=== PATIENT | female | born 1990 | race Caucasian/White ===

== ENCOUNTER 2019-03-11 11:42 | Inpatient (IN) | payer OTHER ==
[2019-03-11 13:14] VITALS: BMI 27.6
--- NOTE | 2019-03-11 14:11 | HP ---
CIWA Score Nausea/Vomitin (vomit x 2) Muscle Tremors: 1-None Visible, but [place] Anxiety: 3 Agitation: 0-Normal Activity Paroxysmal Sweats: 1-Minimal Palms Moist Orientation: 1-Uncertain about Date Tacttile Disturbances: 2-Mild Itch/Numbness/Burn (toes bilateral) Auditory Disturbances: 2-Mild Harshness/Frighten Visual Disturbances: 0-None Headache: 0-None Present CIWA-Ar Total Score: 13 - Admission Criteria OASAS Guidelines: Admission for Medically Managed Detox: Requires at least one of the followin. CIWA greater than 12 2. Seizures within the past 24 hours 3. Delirium tremens within the past 24 hours 4. Hallucinations within the past 24 hours 5. Acute intervention needed for co occurring medical disorder 6. Acute intervention needed for co occurring psychiatric disorder 7. Severe withdrawal that cannot be handled at a lower level of care (continued vomiting, continued diarrhea, abnormal vital signs) requiring intravenous medication and/or fluids 8. Patient presents the following: CIWA greater than 12 Admission Criteria Met: Admission criteria met Admission ROS [facility] Chief Complaint: " detox" Allergies/Adverse Reactions: Allergies Allergy/AdvReac Type Severity Reaction Status Date / Time tramadol Allergy Verified 03/11/19 13:00 History of Present Illness: 29 yo female, homeless, with hx of alcohol , mary, K2 and heroin (IV) dependence is here seeking detox. [facility] on methadone 120 mg qd, last dose today, dose pending verification. Utox positive fir THC, MARY, MET, FEN, MOP, Oxy. JAZZY = 0.00. PMHX: Asthma, Hep C. depression, anxiety and PTSD (non- adherent. Reports hx of seizure cause by tramadol "couple of years ago." Denies hx of suicidal ideation x "couple of times" with last episode on year ago. Denies suicidal / homicidal ideation. Longest period of sobriety three months in 2017. Last detox [facility] one year ago. Exam Limitations: No Limitations - Ebola screening Have you traveled outside of the country in the last 21 days: No (N) Have you had contact with anyone from an Ebola affected area: No Do you have a fever: No - Review of Systems Constitutional: Loss of Appetite, Changes in sleep, Unintentional Wgt. Loss ( 20lbs in past two months), Other (fatigue) EENT: reports: Nose Congestion, Dental Problems (+ multiple caries) Respiratory: reports: No Symptoms reported Cardiac: reports: No Symptoms Reported GI: reports: Nausea, Poor Appetite, Poor Fluid Intake, Vomiting : reports: No Symptoms Reported Musculoskeletal: reports: Back Pain Integumentary: reports: No Symptoms Reported Neuro: reports: Numbness (b/l toes) Endocrine: reports: Increased Thirst Hematology: reports: No Symptoms Reported Psychiatric: reports: Orientated x3, Anxious Other Systems: Reviewed and Negative Patient History - Patient Medical History Hx Anemia: No Hx Asthma: Yes Hx Chronic Obstructive Pulmonary Disease (COPD): No Hx Cancer: No Hx Cardiac Disorders: Yes (Bradycardia) Hx Congestive Heart Failure: No Hx Hypertension: No Hx Hypercholesterolemia: No Hx Pacemaker: No HX Cerebrovascular Accident: No Hx Seizures: Yes (seizure cause by tramadol "couple of years ago." ) Hx Dementia: No Hx Diabetes: No Hx Gastrointestinal Disorders: No Hx Liver Disease: Yes Hx Genitourinary Disorders: No Hx Sexually Transmitted Disorders: No Hx Renal Disease (ESRD): No Hx Thyroid Disease: No Hx Human Immunodeficiency Virus (HIV): No Hx Hepatitis C: Yes Hx Depression: Yes Hx Suicide Attempt: Yes (couple of times" with last episode on year ago) Hx Bipolar Disorder: No Hx Schizophrenia: No - Patient Surgical History Past Surgical History: Yes Hx Section: Yes (x4) Other Surgical History: ganglion cyst removal, gallblader remove - PPD History Previous Implant?: No Documented Results: Negative w/o proof PPD to be Administered?: Yes - Reproductive History Patient is a Female of Child Bearing Age (11 -55 yrs old): Yes Last Menstrual Period: 01/29/19 (appx ) Patient : No - Smoking Cessation Smoking history: Current every day smoker Have you smoked in the past 12 months: Yes Aproximately how many cigarettes per day: 13 Hx Chewing Tobacco Use: No Initiated information on smoking cessation: Yes 'Breaking Loose' booklet given: 03/11/19 - Substance & Tx. History Hx Alcohol Use: Yes Hx Substance Use: Yes Substance Use Type: Alcohol, Cocaine, Heroin, Marijuana Hx Substance Use Treatment: Yes ( Last detox [facility] one year ago.) - Substances abused Heroin Substance route: Injection Frequency: Daily Amount used: 4 BAGS Age of first use: 20 Date of last use: 03/11/19 Cocaine Substance route: Injection Frequency: Daily Amount used: 1 BAG Age of first use: 20 Date of last use: 03/11/19 K2/Spice Substance route: Smoking Frequency: Daily Amount used: 15 STICKS Age of first use: 28 Date of last use: 03/11/19 Alcohol Substance route: Oral Frequency: Daily Amount used: 2 nips + 2 x 24 oz rosa Age of first use: 12 Date of last use: 03/11/19 Family Disease History - Family Disease History Family Disease History: Other: Father (alcohol ) Admission Physical Exam S - Vital Signs Vital Signs: Vital Signs - 24 hr 03/11/19 13:03 Temperature 96.8 F L Pulse Rate 56 L Respiratory 18 Rate Blood Pressure 94/56 L - Physical General Appearance: Yes: Disheveled, Mild Distress, Thin, Sweating, Anxious HEENTM: Yes: EOMI, Hearing grossly Normal, Normal ENT Inspection, Normocephalic , Normal Voice, KOJO, Pharynx Normal, Tm's normal, Rhinorrhea, Other (poor dentition) Respiratory: Yes: Chest Non-Tender, Lungs Clear, No Respiratory Distress, No Accessory Muscle Use, Wheezing Neck: Yes: Within Normal Limits Breast: Yes: Breast Exam Deferred Cardiology: Yes: Regular Rhythm, Bradycardia Abdominal: Yes: Normal Bowel Sounds, Non Tender, Soft, Protuberent Genitourinary: Yes: Within Normal Limits Back: Yes: Normal Inspection Musculoskeletal: Yes: Back pain, Other (right hip pain) Extremities: Yes: Normal Capillary Refill, Normal Inspection, Normal Range of Motion 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: Yes: 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 intact, Fully Oriented, Alert, Motor Strength 5/5, Depressed Affect Integumentary: Yes: Normal Color, Dry, Warm, Track Franco (bilateral anticubital fossa no infection present) Lymphatic: Yes: Within Normal Limits - Diagnostic (1) Opioid dependence on agonist therapy Current Visit: Yes Status: Chronic Comment: on methadone maintance 120 mg qd , last dose today, dose pending verification (2) Cocaine dependence Current Visit: Yes Status: Acute (3) Cannabis dependence Current Visit: Yes Status: Acute (4) Alcohol dependence with uncomplicated withdrawal Current Visit: Yes Status: Acute (5) Back pain Current Visit: Yes Status: Acute Qualifiers: Back pain location: low back pain Back pain laterality: right Sciatica presence: without sciatica (6) Asthma Current Visit: Yes Status: Chronic Qualifiers: Asthma severity: mild Asthma persistence: intermittent Asthma complication type: uncomplicated Qualified Code(s): J45.20 - Mild intermittent asthma, uncomplicated (7) Wheezing Current Visit: Yes Status: Acute Cleared for Admission S - Detox or Rehab [facility] Level of Care: Medically Managed Detox Regimen/Protocol: Librium Breathalyzer - Breathalyzer Breathalyzer: 0 POC Urine test - Test device test lot number: [id number] Expiration date: 07/31/20 - Control test control: Yes - Result Urine Test Results: Negative - NO line present Urine Drug Screen - Test Device Lot number: [id number] Expiration date: 10/30/20 - Control Is test valid?: Yes - Results Drug screen NEGATIVE: No Urine drug screen results: THC-Marijuana, MARY-Cocaine, MET-Methamphetamine, FEN- Fentanyl, MOP-Opiates, OXY-Oxycodone Inpatient Rehab Admission - Rehab Decision to Admit Inpatient rehab admission?: No
[2019-03-11] MEDS ORDERED: MAGNESIUM CITRATE 300 ML BOTTLE PO PRN (14:19)
[2019-03-11] MEDS ORDERED: NICOTINE POLACRILEX 2 MG GUM BUC PRN (14:19)
[2019-03-11] MEDS ORDERED: BISMUTH SUBSALICYLATE 262 MG/15 ML BTL PO PRN (14:19)
[2019-03-11] MEDS ORDERED: MAG HYDROX/AL HYDROX/SIMETH 30 ML UNIT-DOSE CUP PO PRN (14:19)
[2019-03-11] MEDS ORDERED: MAGNESIUM HYDROX 2400MG/30ML ORAL SUSPENSION 30 ML CUP PO PRN (14:19)
[2019-03-11] MEDS ORDERED: ACETAMINOPHEN 325 MG TABLET (FP) PO PRN ×2 (14:19)
[2019-03-11] MEDS ORDERED: MENTHOL/PHENOL 1 EACH UD MM PRN (14:19)
[2019-03-11] MEDS ORDERED: ALBUTEROL SO4 0.083% IH SOL 2.5 MG/3 ML VIAL.NEB. NEB PRN (14:23)
[2019-03-11 17:04] LABS: HEMATOCRIT 39.6 % (32.4-45.2); MCH 27.7 pg (25.7-33.7); MCHC 32.9 g/dl (32.0-36.0); MEAN CELL VOLUME 84.1 fl (80-96); MEAN PLT VOLUME 9.8 fl (7.5-11.1); PLATELET COUNT 190 K/MM3 (134-434); RBC 4.71 M/mm3 (3.60-5.2); RDW 16.5 % (11.6-15.6); WHITE BLOOD COUNT 7.7 K/mm3 (4.0-10.0)
[2019-03-11] MEDS: chlordiazePOXIDE HCL 10 MG CAPSULE PO PRN (17:16)
[2019-03-11 17:20] LABS: ALBUMIN 3.5 g/dl (3.4-5.0); ALK PHOS 88 U/L (45-117); ANION GAP 6 MMOL/L (8-16); BILIRUBIN,TOTAL 0.4 mg/dL (0.2-1); BLOOD UREA NITROGEN 13 mg/dL (7-18); CALCIUM 8.3 mg/dL (8.5-10.1); CHLORIDE 106 mmol/L (98-107); CO2 28 mmol/L (21-32); CREATININE 0.7 mg/dL (0.55-1.3); GLUCOSE,RANDOM 80 mg/dL (74-106); POTASSIUM 4.1 mmol/L (3.5-5.1); SGOT/AST 14 U/L (15-37); SGPT/ALT 17 U/L (13-61); SODIUM 139 mmol/L (136-145); TOT PROT 6.9 g/dl (6.4-8.2)
[2019-03-11] MEDS: chlordiazePOXIDE HCL 25 MG CAPSULE PO SCH (20:55)
[2019-03-11] MEDS: THIAMINE HCL 100 MG TABLET (FP) PO SCH (22:13)
[2019-03-12] MEDS: IBUPROFEN 400 MG TABLET (FP) PO PRN (01:46)
[2019-03-12] MEDS: chlordiazePOXIDE HCL 25 MG CAPSULE PO SCH ×2 (05:53→13:53)
[2019-03-12] MEDS ORDERED: METHADONE HCL 40 MG DISPERSABLE TABLET PO ONE (08:40)
[2019-03-12] MEDS: PRENATAL VITAMINS W/ FOLIC ACID TABLET (FP) PO SCH (09:58)
[2019-03-12] MEDS: NICOTINE 14 MG/24 HOURS TOPICAL PATCH TD SCH (10:02)
[2019-03-12] MEDS: TRIMETHOBENZAMIDE HCL 200MG/2ML INJ IM PRN ×2 (10:50→18:15)
[2019-03-12] MEDS: chlordiazePOXIDE HCL 10 MG CAPSULE PO PRN ×2 (11:43→17:25)
--- NOTE | 2019-03-12 12:07 | PN ---
S Progress Note Note: Psychiatric nurse practitioner note: Network Control Technician attempted to see patient twice for psychiatric consultation. Patient is lethargic and vomiting. She is actively withdrawing. She reports not feeling well today and stated to editorial writer, " I do not want to see psychiatry today. I do not feel well. Its ok. thank you. Nursing staff informed.
--- NOTE | 2019-03-12 13:54 | PN ---
S CIWA - CIWA Score Nausea/Vomitin Muscle Tremors: 3 Anxiety: 3 Agitation: 4-Moderately Restless Paroxysmal Sweats: 3 Orientation: 0-Oriented Tacttile Disturbances: 0-None Auditory Disturbances: 0-None Visual Disturbances: 0-None Headache: 0-None Present CIWA-Ar Total Score: 15 S Progress Note (SOAP) Subjective: sweats shakes interrupted sleep nausea vomiting Objective: 03/12/19 13:53 Vital Signs Temperature 97.5 F L 03/12/19 09:21 Pulse Rate 53 L 03/12/19 09:21 Respiratory Rate 16 03/12/19 09:21 Blood Pressure 115/60 03/12/19 09:21 O2 Sat by Pulse Oximetry (%) Laboratory Tests 03/11/19 03/11/19 03/11/19 14:30 14:30 14:30 WBC 7.7 RBC 4.71 Hgb 13.0 Hct 39.6 MCV 84.1 MCH 27.7 MCHC 32.9 RDW 16.5 H Plt Count 190 MPV 9.8 Sodium 139 Potassium 4.1 Chloride 106 Carbon Dioxide 28 Anion Gap 6 L BUN 13 Creatinine 0.7 Creat Clearance w eGFR 98.25 Random Glucose 80 Calcium 8.3 L Total Bilirubin 0.4 AST 14 L ALT 17 Alkaline Phosphatase 88 Total Protein 6.9 Albumin 3.5 RPR Titer Nonreactive aaox3 lying in bed no acute distress Assessment: 03/12/19 13:53 withdrawls sx Plan: continue detox increase fluids tigan IM prn
--- NOTE | 2019-03-12 15:53 | PN ---
[facility] Progress Note Note: ekg performed; sinus lorne prolonged qt. pulse 54. pt denies of any chest pain/discomfort. Pt appears a bit better since receiving tigan IM. lorenaan SL prn also ordered pt states she is feeling a bit better since taking a shower. will continue to monitor
[2019-03-12] MEDS: ONDANSETRON *ODT* 4 MG TABLET SL PRN (15:55)
[2019-03-12] MEDS: chlordiazePOXIDE 5 MG CAPSULE PO SCH (22:43)
[2019-03-12] MEDS: THIAMINE HCL 100 MG TABLET (FP) PO SCH (22:44)
[2019-03-13] MEDS: ONDANSETRON *ODT* 4 MG TABLET SL PRN ×3 (01:25→22:25)
[2019-03-13] MEDS: chlordiazePOXIDE 5 MG CAPSULE PO SCH ×2 (05:40→12:11)
[2019-03-13] MEDS: METHADONE HCL 40 MG DISPERSABLE TABLET PO SCH (05:40)
[2019-03-13] MEDS: chlordiazePOXIDE HCL 10 MG CAPSULE PO PRN ×2 (08:10→16:47)
[2019-03-13] MEDS: IBUPROFEN 400 MG TABLET (FP) PO PRN ×2 (08:10→22:25)
[2019-03-13] MEDS: PRENATAL VITAMINS W/ FOLIC ACID TABLET (FP) PO SCH (09:05)
[2019-03-13] MEDS: NICOTINE 14 MG/24 HOURS TOPICAL PATCH TD SCH (09:25)
--- NOTE | 2019-03-13 12:44 | PN ---
S CIWA - CIWA Score Nausea/Vomitin Muscle Tremors: 2 Anxiety: 3 Agitation: 2 Paroxysmal Sweats: 2 Orientation: 0-Oriented Tacttile Disturbances: 2-Mild Itch/Numbness/Burn Auditory Disturbances: 0-None Visual Disturbances: 0-None Headache: 2-Mild CIWA-Ar Total Score: 15 S Progress Note (SOAP) Subjective: Tremors, sweats, abdominal cramps, back pain Objective: 03/13/19 12:44 Vital Signs 03/13/19 03/13/19 06:32 10:00 Temperature 98.2 F 97.9 F Pulse Rate 58 L 59 L Respiratory 18 16 Rate Blood Pressure 119/67 101/58 L Laboratory Last Values WBC 7.7 K/mm3 (4.0-10.0) 03/11/19 14:30 RBC 4.71 M/mm3 (3.60-5.2) 03/11/19 14:30 Hgb 13.0 GM/dL (10.7-15.3) 03/11/19 14:30 Hct 39.6 % (32.4-45.2) 03/11/19 14:30 MCV 84.1 fl (80-96) 03/11/19 14:30 MCH 27.7 pg (25.7-33.7) 03/11/19 14:30 MCHC 32.9 g/dl (32.0-36.0) 03/11/19 14:30 RDW 16.5 % (11.6-15.6) H 03/11/19 14:30 Plt Count 190 K/MM3 (134-434) 03/11/19 14:30 MPV 9.8 fl (7.5-11.1) 03/11/19 14:30 Sodium 139 mmol/L (136-145) 03/11/19 14:30 Potassium 4.1 mmol/L (3.5-5.1) 03/11/19 14:30 Chloride 106 mmol/L (98-107) 03/11/19 14:30 Carbon Dioxide 28 mmol/L (21-32) 03/11/19 14:30 Anion Gap 6 MMOL/L (8-16) L 03/11/19 14:30 BUN 13 mg/dL (7-18) 03/11/19 14:30 Creatinine 0.7 mg/dL (0.55-1.3) 03/11/19 14:30 Creat Clearance w eGFR 98.25 (>60) 03/11/19 14:30 Random Glucose 80 mg/dL (74-106) 03/11/19 14:30 Calcium 8.3 mg/dL (8.5-10.1) L 03/11/19 14:30 Total Bilirubin 0.4 mg/dL (0.2-1) 03/11/19 14:30 AST 14 U/L (15-37) L 03/11/19 14:30 ALT 17 U/L (13-61) 03/11/19 14:30 Alkaline Phosphatase 88 U/L (45-117) 03/11/19 14:30 Total Protein 6.9 g/dl (6.4-8.2) 03/11/19 14:30 Albumin 3.5 g/dl (3.4-5.0) 03/11/19 14:30 RPR Titer Nonreactive (NONREACTIVE) 03/11/19 14:30 Labs noted Assessment: 03/13/19 12:44 Withdrawal sx Plan: Continue detox
[2019-03-13] MEDS: METHOCARBAMOL 500 MG TABLET PO PRN (16:47)
[2019-03-13] MEDS ORDERED: chlordiazePOXIDE HCL 10 MG CAPSULE PO PRN (21:00)
[2019-03-13] MEDS: chlordiazePOXIDE HCL 10 MG CAPSULE PO SCH (22:24)
[2019-03-13] MEDS: THIAMINE HCL 100 MG TABLET (FP) PO SCH (22:24)
[2019-03-13] MEDS: MELATONIN 5 MG TABLETS PO PRN (22:25)
[2019-03-14] MEDS: METHADONE HCL 40 MG DISPERSABLE TABLET PO SCH (05:21)
[2019-03-14] MEDS: chlordiazePOXIDE HCL 10 MG CAPSULE PO SCH ×3 (05:21→22:21)
[2019-03-14] MEDS: ONDANSETRON *ODT* 4 MG TABLET SL PRN (06:30)
[2019-03-14] MEDS: IBUPROFEN 400 MG TABLET (FP) PO PRN ×2 (09:39→22:21)
[2019-03-14] MEDS: NICOTINE 14 MG/24 HOURS TOPICAL PATCH TD SCH (09:42)
[2019-03-14] MEDS: PRENATAL VITAMINS W/ FOLIC ACID TABLET (FP) PO SCH (09:44)
[2019-03-14] MEDS: METHOCARBAMOL 500 MG TABLET PO PRN ×2 (10:40→16:50)
--- NOTE | 2019-03-14 13:17 | PN ---
S Progress Note Note: PATIENT CONTINUES WITH DETOX REGIMEN FOR ETOH WITHDRAWAL. PATIENT C/O MILD ANXIETY AND BACK PAIN. Vital Signs Temperature 97.1 F L 03/14/19 09:29 Pulse Rate 79 03/14/19 09:29 Respiratory Rate 16 03/14/19 09:29 Blood Pressure 94/59 L 03/14/19 09:29 O2 Sat by Pulse Oximetry (%) Laboratory Tests 03/11/19 03/11/19 03/11/19 14:30 14:30 14:30 WBC 7.7 RBC 4.71 Hgb 13.0 Hct 39.6 MCV 84.1 MCH 27.7 MCHC 32.9 RDW 16.5 H Plt Count 190 MPV 9.8 Sodium 139 Potassium 4.1 Chloride 106 Carbon Dioxide 28 Anion Gap 6 L BUN 13 Creatinine 0.7 Creat Clearance w eGFR 98.25 Random Glucose 80 Calcium 8.3 L Total Bilirubin 0.4 AST 14 L ALT 17 Alkaline Phosphatase 88 Total Protein 6.9 Albumin 3.5 RPR Titer Nonreactive PE: ALERT AND ORIENTED X 3 SKIN WARM AND DRY CAR S1S2 RESP CTA BL EXT FULL ROM, AMB AD ASHWIN, +LS SPINE TENDERNESS +ANXIETY A/P: WITHDRAWAL SX LBP CONTINUE DETOX ENCOURAGE ORAL FLUIDS ADD VISTARIL 25MG EVERY 6 HR PRN FOR ANXIETY LIDOCAINE PATCH FOR LBP FOR D/C IN AM
[2019-03-14] MEDS: LIDOCAINE 5% TOPICAL PATCH TP SCH (14:58)
[2019-03-14] MEDS: hydrOXYzine PAMOATE 25 MG CAPSULE (FP) PO PRN ×2 (16:50→22:21)
[2019-03-14] MEDS ORDERED: chlordiazePOXIDE HCL 10 MG CAPSULE PO ONE (17:10)
--- NOTE | 2019-03-14 17:13 | PN ---
[facility] Progress Note Note: withdrawal symptom Vital Signs Temperature 98.1 F 03/14/19 15:07 Pulse Rate 76 03/14/19 14:55 Respiratory Rate 17 03/14/19 14:55 Blood Pressure 117/69 03/14/19 14:55 O2 Sat by Pulse Oximetry (%) librium 10 mgs po now ensure plus 12 mls po bid close monitoring
[2019-03-14] MEDS ORDERED: LIDOCAINE PATCH REMOVAL MC SCH (22:00)
[2019-03-14] MEDS: THIAMINE HCL 100 MG TABLET (FP) PO SCH (22:21)
[2019-03-14] MEDS: MELATONIN 5 MG TABLETS PO PRN (22:22)
[2019-03-15] MEDS: METHADONE HCL 40 MG DISPERSABLE TABLET PO SCH (05:05)
[2019-03-15] MEDS: IBUPROFEN 400 MG TABLET (FP) PO PRN (05:33)
[2019-03-15 07:41] VITALS: BP 101/80; PULSE 96; TEMP 97.9
--- NOTE | 2019-03-15 09:21 | DS ---
[facility] Detox Discharge Summary Admission Date: 03/11/19 Discharge Date: 03/15/19 - History Present History: Alcohol Dependence, Cannabis Dependence, Cocaine Dependence - Physical Exam Results Vital Signs: Vital Signs Temperature 97.9 F 03/15/19 03:00 Pulse Rate 96 H 03/15/19 03:00 Respiratory Rate 18 03/15/19 03:00 Blood Pressure 101/80 03/15/19 03:00 O2 Sat by Pulse Oximetry (%) - Treatment Hospital Course: Detox Protocol Followed, Detoxed Safely, Responded well, Discharged Condition Good, Rehab Referral Accepted - Medication Discharge Medications: Ambulatory Orders Gabapentin [Neurontin -] 200 mg PO DAILY 03/11/19 - Diagnosis (1) Alcohol dependence with uncomplicated withdrawal Current Visit: Yes Status: Chronic (2) Back pain Current Visit: Yes Status: Chronic Qualifiers: Back pain location: low back pain Back pain laterality: right Sciatica presence: without sciatica (3) Cannabis dependence Current Visit: Yes Status: Chronic (4) Cocaine dependence Current Visit: Yes Status: Chronic Qualifiers: Substance use status: uncomplicated Qualified Code(s): F14.20 - Cocaine dependence, uncomplicated (5) Wheezing Current Visit: Yes Status: Acute (6) Asthma Current Visit: Yes Status: Chronic Qualifiers: Asthma severity: mild Asthma persistence: intermittent Asthma complication type: uncomplicated Qualified Code(s): J45.20 - Mild intermittent asthma, uncomplicated (7) Opioid dependence on agonist therapy Current Visit: Yes Status: Chronic - AMA Did Patient Leave Against Medical Advice: No (referred to [facility] methadone [facility])
[2019-03-15] MEDS: NICOTINE 14 MG/24 HOURS TOPICAL PATCH TD SCH (10:31)
[2019-03-15] MEDS: LIDOCAINE 5% TOPICAL PATCH TP SCH (10:31)
[2019-03-15] MEDS: PRENATAL VITAMINS W/ FOLIC ACID TABLET (FP) PO SCH (10:31)
--- NOTE | 2019-03-15 10:40 | EKG ---
Test Reason : Blood Pressure : / mmHG Vent. Rate : 054 BPM Atrial Rate : 054 BPM P-R Int : 116 ms QRS Dur : 080 ms QT Int : 520 ms P-R-T Axes : -08 -02 021 degrees QTc Int : 493 ms SINUS BRADYCARDIA PROLONGED QT ABNORMAL ECG NO PREVIOUS ECGS AVAILABLE Confirmed by JEFFERSON CRESPO, JONATHON ([id number]) on 03/15/2019 10:40:29 AM Referred By: MANOJ PEREYRA Confirmed By:JONATHON PAULINO MD
== END 2019-03-15 09:39 | disposition home or self-care (01) | DRG 773 ==
LOC: YASAS 11:42 → Y6N 15:11
PROVIDERS: ADMIT Surgery; ATTEND Surgery
PROC: HZ2ZZZZ Detoxification Services for Substance Abuse Treatment (ICD-10-PCS; principal; 2019-03-11)
DX: F10.230 Alcohol dependence with withdrawal, uncomplicated (principal); F14.20 Cocaine dependence, uncomplicated; F12.20 Cannabis dependence, uncomplicated; F11.20 Opioid dependence, uncomplicated; F17.210 Nicotine dependence, cigarettes, uncomplicated; F41.8 Other specified anxiety disorders; F32.9 Major depressive disorder, single episode, unspecified; J45.20 Mild intermittent asthma, uncomplicated; B18.2 Chronic viral hepatitis C; Z86.69 Personal history of other diseases of the nervous system and sense organs; Z91.5 Personal history of self-harm
CPT/HCPCS: 36415; 80053; 85027; 86593; 93005; 93010; 94640; Q0162

== ENCOUNTER 2020-05-23 13:28 | Inpatient (IN) | payer OTHER ==
--- NOTE | 2020-05-23 14:01 | BHS.RME ---
Substance Use & Tx History - Substance Use History Alcohol Substance amount: 4-5 beers 12 0z Frequency of use: Daily Substance route: Oral Date of Last Use: 05/23/20 (9am) Heroin Substance amount: 1 bundle Frequency of use: Daily Substance route: Injection (ex: intravenous or skin popping) Date of Last Use: 05/22/20 Nicotine Substance amount: 1 pack Frequency of use: Daily Substance route: Smoking Date of Last Use: 05/23/20 Physical/Psych/Mental Status - Behavior General Behavior: Increased activity (restlessness, agitation) Eye Contact: Normal - Cooperativeness Cooperativeness: Cooperative - Thinking Thought Processes: Tight, Logical, Goal Directed - Physical Health Problems Is patient presently having any pain?: No Does patient presently have any injuries (include location): No Does patient currently have a fever: No Is patient : No CIWA Nausea/Vomitin-Mild Nausea/No Vomiting Muscle Tremors: 1-None Visible, but [place] Anxiety: 4-Mod. Anxious/Guarded Agitation: 4-Moderately Restless Paroxysmal Sweats: 5 Orientation: 0-Oriented Tacttile Disturbances: 0-None Auditory Disturbances: 0-None Visual Disturbances: 0-None Headache: 0-None Present CIWA-Ar Total Score: 15
--- NOTE | 2020-05-23 15:57 | HP ---
CIWA Score Nausea/Vomitin-Mild Nausea/No Vomiting Muscle Tremors: 1-None Visible, but [place] Anxiety: 4-Mod. Anxious/Guarded Agitation: 4-Moderately Restless Paroxysmal Sweats: 5 Orientation: 0-Oriented Tacttile Disturbances: 0-None Auditory Disturbances: 0-None Visual Disturbances: 0-None Headache: 0-None Present CIWA-Ar Total Score: 15 - Admission Criteria OASAS Guidelines: Admission for Medically Managed Detox: Requires at least one of the followin. CIWA greater than 12 2. Seizures within the past 24 hours 3. Delirium tremens within the past 24 hours 4. Hallucinations within the past 24 hours 5. Acute intervention needed for co occurring medical disorder 6. Acute intervention needed for co occurring psychiatric disorder 7. Severe withdrawal that cannot be handled at a lower level of care (continued vomiting, continued diarrhea, abnormal vital signs) requiring intravenous medication and/or fluids 8. Admitting History and Physical - Admission Chief Complaint: Ms. Willingham is a 30 yo woman who presents to [facility] requesting admission to detox for alcohol and heroin use disorder. History of Present Illness: Ms. Willingham is a 30 yo woman who presents to [facility] requesting admission to detox for alcohol and heroin use disorder. She was here in March 2019 for detox. She did not go to rehab afterwards and relapsed one day post discharge. 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 [facility] History Source: Patient Limitations to Obtaining History: No Limitations - Past Medical History ...LMP: 01/29/19 - Smoking History Smoking history: Current every day smoker Have you smoked in the past 12 months: Yes Aproximately how many cigarettes per day: 13 - Alcohol/Substance Use Hx Alcohol Use: Yes Admission ROS [facility] - HPI Allergies/Adverse Reactions: Allergies Allergy/AdvReac Type Severity Reaction Status Date / Time tramadol Allergy Verified 03/11/19 13:00 Exam Limitations: No Limitations - Ebola screening Have you been sick,other than usual withdrawal symptoms: No Do you have a fever: No - Review of Systems Constitutional: Unintentional Wgt. Loss EENT: reports: Hearing Loss (right ear) Respiratory: reports: No Symptoms reported Cardiac: reports: No Symptoms Reported GI: reports: Nausea : reports: No Symptoms Reported Musculoskeletal: reports: Back Pain Integumentary: reports: No Symptoms Reported Neuro: reports: No Symptoms reported Endocrine: reports: No Symptoms Reported Hematology: reports: No Symptoms Reported Psychiatric: reports: Anxious Patient History - Patient Medical History Hx Anemia: No Hx Asthma: Yes Hx Chronic Obstructive Pulmonary Disease (COPD): No Hx Cancer: No Hx Cardiac Disorders: Yes (Bradycardia) Hx Congestive Heart Failure: No Hx Hypertension: No Hx Hypercholesterolemia: No Hx Pacemaker: No HX Cerebrovascular Accident: No Hx Seizures: Yes (seizure cause by tramadol "couple of years ago." ) Hx Dementia: No Hx Diabetes: No Hx Gastrointestinal Disorders: No Hx Liver Disease: Yes Hx Genitourinary Disorders: No Hx Sexually Transmitted Disorders: No Hx Renal Disease (ESRD): No Hx Thyroid Disease: No Hx Human Immunodeficiency Virus (HIV): No Hx Hepatitis C: Yes Hx Depression: Yes Hx Suicide Attempt: Yes (couple of times" with last episode on year ago) Hx Bipolar Disorder: No Hx Schizophrenia: No - Patient Surgical History Past Surgical History: Yes Hx Neurologic Surgery: No Hx Cataract Extraction: No Hx Cardiac Surgery: No Hx Lung Surgery: No Hx Breast Surgery: No Hx Breast Biopsy: No Hx Abdominal Surgery: No Hx Appendectomy: No Hx Cholecystectomy: No Hx Genitourinary Surgery: No Hx Section: Yes (x4) Hx Orthopedic Surgery: No Other Surgical History: ganglion cyst removal, gallblader remove - PPD History Date: 03/13/19 - Reproductive History Last Menstrual Period: 01/29/19 - Smoking Cessation Smoking history: Current every day smoker Have you smoked in the past 12 months: Yes Aproximately how many cigarettes per day: 20 Cigars Per Day: 0 Hx Chewing Tobacco Use: No Initiated information on smoking cessation: Yes 'Breaking Loose' booklet given: 05/23/20 Admission Physical Exam [facility] Physical General Appearance: Yes: Nourished, Tremorous, Anxious HEENTM: Yes: Hearing grossly Normal, Normocephalic, Normal Voice Respiratory: Yes: Lungs Clear, Normal Breath Sounds, No Accessory Muscle Use Neck: Yes: Within Normal Limits, Supple, Trachea in good position Breast: Yes: Breast Exam Deferred Cardiology: Yes: Regular Rhythm, Regular Rate, S1, S2 Abdominal: Yes: Soft (mild mid line), Increased Bowel Sounds, Tenderness Genitourinary: Yes: Other (deferred) Back: Yes: Normal Inspection Musculoskeletal: Yes: Gait Steady Extremities: Yes: Non-Tender, Tremors, Other (chronic ankle, knee and hip pain after jump out of second story window) 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: Yes: Alert, Normal Response Integumentary: Yes: Dry, Warm, Track Franco, Other (self inflicted lateral lines over medial forearms) Lymphatic: Yes: Within Normal Limits Cleared for Admission [facility] - Detox or Rehab [facility] Level of Care: Medically Managed Detox Regimen/Protocol: Librium Breathalyzer - Breathalyzer Breathalyzer: 0 POC Urine test - Test device test lot number: [id number] Expiration date: 07/31/20 - Control test control: Yes Urine Drug Screen - Test Device Lot number: [id number] Expiration date: 07/31/21 - Control Is test valid?: Yes - Results Drug screen NEGATIVE: No Urine drug screen results: MCKENNA-Cocaine, FEN-Fentanyl, MOP-Opiates, MTD-Methadone Inpatient Rehab Admission - Rehab Decision to Admit Inpatient rehab admission?: No
[2020-05-23] MEDS ORDERED: MAGNESIUM HYDROX 2400MG/30ML ORAL SUSPENSION 30 ML CUP PO PRN (16:01)
[2020-05-23] MEDS ORDERED: MENTHOL/PHENOL 1 EACH UD MM PRN (16:01)
[2020-05-23] MEDS ORDERED: BISMUTH SUBSALICYLATE 524 MG/30 ML UD PO PRN (16:01)
[2020-05-23] MEDS ORDERED: MAG HYDROX/AL HYDROX/SIMETH 30 ML UNIT-DOSE CUP PO PRN (16:01)
[2020-05-23] MEDS ORDERED: NICOTINE POLACRILEX 2 MG GUM BUC PRN (16:01)
[2020-05-23] MEDS ORDERED: ACETAMINOPHEN 325 MG TABLET (FP) PO PRN ×2 (16:01)
[2020-05-23] MEDS ORDERED: chlordiazePOXIDE HCL 25 MG CAPSULE PO PRN (16:01)
[2020-05-23] MEDS ORDERED: MAGNESIUM CITRATE 300 ML BOTTLE PO PRN (16:01)
[2020-05-23 16:28] VITALS: BMI 28.3
[2020-05-23] MEDS ORDERED: METHADONE HCL 10 MG TABLET PO ONE (16:45)
[2020-05-23] MEDS: hydrOXYzine PAMOATE 25 MG CAPSULE (FP) PO SCH ×2 (17:40→22:44)
[2020-05-23] MEDS: PRENATAL VITAMINS W/ FOLIC ACID TABLET (FP) PO SCH (17:40)
[2020-05-23] MEDS: chlordiazePOXIDE HCL 25 MG CAPSULE PO SCH ×2 (17:40→22:43)
[2020-05-23] MEDS: NICOTINE 7 MG/24 HOURS TOPICAL PATCH TD SCH (17:42)
[2020-05-23] MEDS: ONDANSETRON *ODT* 4 MG TABLET SL PRN (17:46)
[2020-05-23] MEDS: MELATONIN 5 MG TABLETS PO SCH (22:43)
[2020-05-23] MEDS: THIAMINE HCL 100 MG TABLET (FP) PO SCH (22:43)
[2020-05-23] MEDS: IBUPROFEN 400 MG TABLET (FP) PO PRN (22:47)
[2020-05-24] MEDS: METHOCARBAMOL 500 MG TABLET PO PRN ×3 (06:11→22:22)
[2020-05-24] MEDS: ONDANSETRON *ODT* 4 MG TABLET SL PRN (06:11)
[2020-05-24] MEDS: chlordiazePOXIDE HCL 25 MG CAPSULE PO SCH ×4 (06:12→22:24)
[2020-05-24] MEDS: hydrOXYzine PAMOATE 25 MG CAPSULE (FP) PO SCH ×2 (06:12→11:35)
[2020-05-24] MEDS ORDERED: METHADONE 80 MG, METHADONE 20 MG PO ONE ×2 (10:10→11:30)
[2020-05-24] MEDS ORDERED: METHADONE HCL 10 MG TABLET PO ONE (10:10)
--- NOTE | 2020-05-24 10:13 | PN ---
S CIWA - CIWA Score Nausea/Vomitin-No Nausea/No Vomiting Muscle Tremors: 4-Moderate,w/Arms Extend Anxiety: 4-Mod. Anxious/Guarded Agitation: 3 Paroxysmal Sweats: 1-Minimal Palms Moist Orientation: 0-Oriented Tacttile Disturbances: 0-None Auditory Disturbances: 0-None Visual Disturbances: 0-None Headache: 0-None Present CIWA-Ar Total Score: 12 [facility] Progress Note (SOAP) Subjective: 30 y/o admitted 05/23/20 with a hx of ALEJANDRO-alcohol,cocaine on Cesar Torres-MMTP with 100 mg methadone po daily. Hx Asthma,PTSD/Anxiety disorder. Anxiety, sweats, irritability Objective: 05/24/20 11:44 Vital Signs 05/24/20 05/24/20 05:46 09:14 Temperature 98.2 F 98.2 F Pulse Rate 60 68 Respiratory 18 18 Rate Blood Pressure 100/58 L 102/57 L O2 Sat by Pulse 96 96 Oximetry (%) Laboratory Tests 05/24/20 05/24/20 07:30 07:30 WBC 3.6 L RBC 4.96 Hgb 13.2 Hct 40.7 MCV 82.0 MCH 26.6 MCHC 32.4 RDW 17.5 H Plt Count 185 MPV 9.1 Sodium 140 Potassium 3.9 Chloride 106 Carbon Dioxide 30 Anion Gap 4 L BUN 21.7 H Creatinine 0.9 Est GFR (CKD-EPI)AfAm 98.75 Est GFR (CKD-EPI)NonAf 85.20 Random Glucose 87 Calcium 8.6 Total Bilirubin 0.8 AST 49 H ALT 83 H Alkaline Phosphatase 97 Total Protein 6.7 Albumin 3.1 L covid-19 result pending Alert o x 3 nad oob ambulating with steady gait lungs:cta,leoncio. Assessment: 05/24/20 11:45 withdrawal sx Plan: cont detox increase po fluids maintain safety
[2020-05-24 10:36] LABS: HEMATOCRIT 40.7 % (32.4-45.2); HEMOGLOBIN 13.2 GM/dL (10.7-15.3); MCH 26.6 pg (25.7-33.7); MCHC 32.4 g/dl (32.0-36.0); MEAN PLT VOLUME 9.1 fl (7.5-11.1); PLATELET COUNT 185 K/MM3 (134-434); RBC 4.96 M/mm3 (3.60-5.2); RDW 17.5 % (11.6-15.6); WHITE BLOOD COUNT 3.6 K/mm3 (4.0-10.0)
[2020-05-24 10:44] LABS: ALBUMIN 3.1 g/dl (3.4-5.0); BILIRUBIN,TOTAL 0.8 mg/dL (0.2-1); BLOOD UREA NITROGEN 21.7 mg/dL (7-18); CALCIUM 8.6 mg/dL (8.5-10.1); CREATININE 0.9 mg/dL (0.55-1.3); POTASSIUM 3.9 mmol/L (3.5-5.1); TOT PROT 6.7 g/dl (6.4-8.2)
[2020-05-24] MEDS ORDERED: METHADONE HCL 10 MG TABLET ONE (11:25)
[2020-05-24] MEDS ORDERED: METHADONE HCL 40 MG DISPERSABLE TABLET ONE (11:26)
[2020-05-24] MEDS: PRENATAL VITAMINS W/ FOLIC ACID TABLET (FP) PO SCH (11:29)
[2020-05-24] MEDS: NICOTINE 7 MG/24 HOURS TOPICAL PATCH TD SCH (11:32)
[2020-05-24] MEDS ORDERED: hydrOXYzine PAMOATE 25 MG CAPSULE (FP) PO PRN (11:58)
[2020-05-24] MEDS ORDERED: NICOTINE POLACRILEX 4 MG GUM BUC PRN (11:59)
[2020-05-24] MEDS: IBUPROFEN 400 MG TABLET (FP) PO PRN (13:53)
[2020-05-24] MEDS: NICOTINE 21 MG/24 HOURS TOPICAL PATCH TD SCH (14:18)
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
[2020-05-24] MEDS ORDERED: LACTULOSE 20 GM/30 ML UDC (FOR ORAL USE ONLY) PO PRN (19:41)
--- NOTE | 2020-05-24 19:46 | PN ---
[facility] Progress Note Note: 30 y.o. female c/o constipation , states she does not recall when the last time she had a bowel movement . Also reports sweating , chills, body aches, LMP - " years ago " reports P5 youngest 1 y.o., 2 y.o. . Vital Signs - 24 hr 05/23/20 05/24/20 05/24/20 20:25 00:30 03:30 Temperature 98.1 F Pulse Rate 58 L Respiratory 17 16 16 Rate Blood Pressure 102/57 L O2 Sat by Pulse 95 Oximetry (%) 05/24/20 05/24/20 05/24/20 05:46 09:14 12:24 Temperature 98.2 F 98.2 F 98.4 F Pulse Rate 60 68 66 Respiratory 18 18 18 Rate Blood Pressure 100/58 L 102/57 L 100/50 L O2 Sat by Pulse 96 96 96 Oximetry (%) 05/24/20 05/24/20 05/24/20 15:42 16:30 17:55 Temperature 98.0 F Pulse Rate 67 78 Respiratory 18 Rate Blood Pressure 96/60 104/60 O2 Sat by Pulse 95 Oximetry (%) O : Abdomen soft , mild diffuse tenderness LUQ A/P : Constipation - Lactulose 30 cc now Encouraged p.o. fluids . pt reports h/o low BP during detox . Advised pt of prn meds and encouraged to take prn meds .
[2020-05-24] MEDS: THIAMINE HCL 100 MG TABLET (FP) PO SCH (22:22)
[2020-05-24] MEDS: MELATONIN 5 MG TABLETS PO SCH (22:22)
[2020-05-24] MEDS: SUVOREXANT 10 MG TABLET PO PRN (22:24)
[2020-05-25] MEDS ORDERED: METHADONE HCL 10 MG TABLET ONE (04:01)
[2020-05-25] MEDS ORDERED: METHADONE HCL 40 MG DISPERSABLE TABLET ONE (04:01)
[2020-05-25] MEDS ORDERED: METHADONE HCL 10 MG TABLET PO SCH (06:00)
[2020-05-25] MEDS: chlordiazePOXIDE HCL 25 MG CAPSULE PO SCH ×4 (06:49→23:14)
[2020-05-25] MEDS: METHADONE 80 MG, METHADONE 20 MG PO SCH (06:49)
[2020-05-25] MEDS: METHOCARBAMOL 500 MG TABLET PO PRN ×3 (10:35→23:14)
[2020-05-25] MEDS: LIDOCAINE 5% TOPICAL PATCH TP SCH (10:35)
[2020-05-25] MEDS: PRENATAL VITAMINS W/ FOLIC ACID TABLET (FP) PO SCH (10:36)
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
[2020-05-25] MEDS: NICOTINE 21 MG/24 HOURS TOPICAL PATCH TD SCH (10:38)
[2020-05-25] MEDS: IBUPROFEN 400 MG TABLET (FP) PO PRN (16:19)
--- NOTE | 2020-05-25 17:41 | EKG ---
Test Reason : Blood Pressure : / mmHG Vent. Rate : 070 BPM Atrial Rate : 070 BPM P-R Int : 140 ms QRS Dur : 082 ms QT Int : 460 ms P-R-T Axes : 054 -11 001 degrees QTc Int : 496 ms NORMAL SINUS RHYTHM MINIMAL VOLTAGE CRITERIA FOR LVH, MAY BE NORMAL VARIANT PROLONGED QT ABNORMAL ECG WHEN COMPARED WITH ECG OF 12-MAR-2019 14:46, NO SIGNIFICANT CHANGE WAS FOUND Confirmed by JEFFERSON CRESPO, JONATHON ([id number]) on 05/25/2020 5:40:51 PM Referred By: Confirmed By:JONATHON PAULINO MD
[2020-05-25] MEDS: MELATONIN 5 MG TABLETS PO SCH (23:13)
[2020-05-25] MEDS: LIDOCAINE PATCH REMOVAL MC SCH (23:13)
[2020-05-25] MEDS: THIAMINE HCL 100 MG TABLET (FP) PO SCH (23:14)
[2020-05-25] MEDS: SUVOREXANT 10 MG TABLET PO PRN (23:15)
[2020-05-26] MEDS ORDERED: chlordiazePOXIDE HCL 10 MG CAPSULE PO PRN
[2020-05-26] MEDS ORDERED: METHADONE HCL 10 MG TABLET ONE (03:36)
[2020-05-26] MEDS ORDERED: METHADONE HCL 40 MG DISPERSABLE TABLET ONE (03:37)
[2020-05-26] MEDS: METHADONE 80 MG, METHADONE 20 MG PO SCH (06:26)
[2020-05-26] MEDS: chlordiazePOXIDE HCL 10 MG CAPSULE PO SCH ×4 (06:27→22:14)
[2020-05-26] MEDS: METHOCARBAMOL 500 MG TABLET PO PRN ×2 (06:28→17:59)
[2020-05-26] MEDS: IBUPROFEN 400 MG TABLET (FP) PO PRN ×2 (08:01→22:14)
[2020-05-26] MEDS: PRENATAL VITAMINS W/ FOLIC ACID TABLET (FP) PO SCH (10:17)
[2020-05-26] MEDS: LIDOCAINE 5% TOPICAL PATCH TP SCH (10:17)
[2020-05-26] MEDS: NICOTINE 21 MG/24 HOURS TOPICAL PATCH TD SCH (10:18)
--- NOTE | 2020-05-26 10:47 | PN ---
Psychiatric Progress Note Vital Signs: Vital Signs Period Temp Pulse Resp BP Sys/Erazo Pulse Ox Last 24 Hr 97.1 F-98.0 F 62-82 17-18 91-116/58-69 95-98 Date of Session: 05/26/20 Chief Complaint:: " I'm having anxiety." HPI: Patient admitted to for alcohol, cocaine, and opiate dependence. Consultation ordered due to complaints of anxiety. ROS: Patient is ambulatory, alert +oriented X3. Current Medications: Active Medications Generic Name Dose Route Start Last Admin Trade Name Freq PRN Reason Stop Dose Admin Acetaminophen 650 mg 05/23/20 16:01 Tylenol - PO Q6H PRN PAIN LEVEL 4 - 6 Acetaminophen 650 mg 05/23/20 16:01 Tylenol - PO Q6H PRN FEVER Al Hydroxide/Mg Hydroxide 30 ml 05/23/20 16:01 05/24/20 16:30 Mylanta Oral Suspension - PO 30 ml Q6H PRN Administration DYSPEPSIA Bismuth Subsalicylate 524 mg 05/23/20 16:01 Pepto-Bismol - PO Q1H PRN DIARRHEA Chlordiazepoxide HCl 10 mg 05/26/20 05:00 05/26/20 10:16 Librium - PO 05/26/20 23:01 10 mg [id number] JOSE C Administration Chlordiazepoxide HCl 10 mg 05/27/20 05:00 Librium - PO 05/27/20 17:01 Q12H JOSE C Chlordiazepoxide HCl 10 mg 05/26/20 00:00 Librium - PO 05/27/20 00:00 Q4H PRN WITHDRAWAL(CONT SUBST) Chlordiazepoxide HCl 10 mg 05/28/20 05:00 Librium - PO 05/28/20 05:01 ONCE@0500 ONE Eucalyptus/Menthol/Phenol/Sorbitol 1 each 05/23/20 16:01 Cepastat Lozenge - MM 05/29/20 16:01 Q4H PRN SORE THROAT Ibuprofen 400 mg 05/23/20 16:01 05/26/20 08:01 Motrin - PO 400 mg Q6H PRN Administration PAIN LEVEL 1 - 3 Lactulose 20 gm 05/24/20 19:41 05/24/20 19:47 Cephulac (Oral Use) PO 20 gm QID PRN Administration CONSTIPATION Lidocaine 1 patch 05/25/20 10:30 05/26/20 10:17 Lidoderm Patch - TP 1 patch DAILY JOSE C Administration Magnesium Citrate 300 ml 05/23/20 16:01 Citroma - PO Q48H PRN CONSTIPATION Magnesium Hydroxide 30 ml 05/23/20 16:01 Milk Of Magnesia - PO PRN PRN CONSTIPATION Melatonin 5 mg 05/23/20 22:00 05/25/20 23:13 Melatonin PO 5 mg HS JOSE C Administration Methadone HCl 80 mg/ Methadone 100 mg 05/25/20 06:00 05/26/20 06:26 HCl 20 mg PO 05/31/20 05:59 100 mg DAILY@0600 JOSE C Administration Methocarbamol 500 mg 05/23/20 16:01 05/26/20 06:28 Robaxin - PO 05/29/20 16:01 500 mg Q6H PRN Administration MUSCLE SPASMS Miscellaneous 1 each 05/25/20 22:00 05/25/20 23:13 Lidoderm Patch Removal MC 1 each DAILY@2200 JOSE C Administration Nicotine 21 mg 05/24/20 11:57 05/26/20 10:18 Nicoderm Patch - TD 21 mg DAILY JOSE C Administration Nicotine Polacrilex 4 mg 05/24/20 11:59 Nicorette Gum - BUC Q2H PRN NICOTINE REPLACEMENT RX Multivit/Folic Acid/Iron 1 tab 05/23/20 16:45 05/26/20 10:17 Vitamins (Sjr) - PO 1 tab DAILY JOSE C Administration Suvorexant 10 mg 05/24/20 22:00 05/25/20 23:15 Belsomra PO 10 mg HS PRN Administration INSOMNIA Thiamine HCl 100 mg 05/23/20 22:00 05/25/20 23:14 Vitamin B1 - PO 100 mg HS JOSE C Administration Medication(s) Change(s): Yes. Will add gabapentin 300mg TID. Current Side Effect: No Lab tests ordered: No Lab tests reviewed: Yes Provider note:: Patient reports having anxiety throughout the day. Vistaril was discontinued due to patient's EKG which reads on 05/23/20: QT/QTC 460/496- Prolong QTC. Ms. Willingham reports past history of accepting gabapentin with favorable effect. Will order Gabapentin 300m TID for anxiety. Benefits and side effects discussed. Verbal consent given. Total face to face time:: 25 Mental Status Exam - Mental Status Exam Alert and Oriented to: Time, Place, Person Cognitive Function: Good Patient Appearance: Well Groomed Mood: Hopeful Affect: Appropriate Patient Behavior: Appropriate, Cooperative Speech Pattern: Appropriate Voice Loudness: Normal Thought Process: Intact, Goal Oriented Thought Disorder: Not Present Hallucinations: Denies Suicidal Ideation: Denies Homicidal Ideation: Denies Insight/Judgement: Poor Sleep: Fair Appetite: Fair Muscle strength/Tone: Normal Gait/Station: Normal Psychiatric Treatment Plan - Problem List (1) Substance induced mood disorder Current Visit: Yes (2) Alcohol dependence with uncomplicated withdrawal Current Visit: Yes (3) Cocaine dependence Current Visit: Yes Qualifiers: Substance use status: uncomplicated Qualified Code(s): F14.20 - Cocaine dependence, uncomplicated (4) Opioid dependence on agonist therapy Current Visit: Yes Comment: on methadone maintance 120 mg qd, last dose today, dose pending verification (5) PTSD (post-traumatic stress disorder) Current Visit: No (6) Substance-induced sleep disorder Current Visit: Yes
[2020-05-26] MEDS ORDERED: TRIMETHOBENZAMIDE HCL 300 MG CAPSULE PO PRN (12:10)
[2020-05-26] MEDS: GABAPENTIN 300 MG CAPSULE PO SCH ×2 (13:08→22:15)
--- NOTE | 2020-05-26 13:59 | PN ---
S CIWA - CIWA Score Nausea/Vomitin-Mild Nausea/No Vomiting Muscle Tremors: 4-Moderate,w/Arms Extend Anxiety: 4-Mod. Anxious/Guarded Agitation: 3 Paroxysmal Sweats: 1-Minimal Palms Moist Orientation: 0-Oriented Tacttile Disturbances: 0-None Auditory Disturbances: 0-None Visual Disturbances: 0-None Headache: 0-None Present CIWA-Ar Total Score: 13 BHS Progress Note (SOAP) Subjective: c/o anxiety nausea,no vomiting intermittent sleep Objective: 05/26/20 13:13 Vital Signs 05/26/20 05/26/20 06:59 09:35 Temperature 98.0 F 97.3 F L Pulse Rate 64 74 Respiratory 18 18 Rate Blood Pressure 104/58 L 103/62 O2 Sat by Pulse 98 Oximetry (%) Laboratory Tests 05/23/20 05/23/20 05/24/20 14:36 16:45 07:30 WBC RBC Hgb Hct MCV MCH MCHC RDW Plt Count MPV Sodium Potassium Chloride Carbon Dioxide Anion Gap BUN Creatinine Est GFR (CKD-EPI)AfAm Est GFR (CKD-EPI)NonAf Random Glucose Calcium Total Bilirubin AST ALT Alkaline Phosphatase Total Protein Albumin POC Urine HCG, Qual Negative Syphilis Serology Non-reactive COVID-19 (GABY) Not detected HIV Ag/Ab Combo Qual 05/24/20 05/24/20 05/24/20 07:30 07:30 07:30 WBC 3.6 L RBC 4.96 Hgb 13.2 Hct 40.7 MCV 82.0 MCH 26.6 MCHC 32.4 RDW 17.5 H Plt Count 185 MPV 9.1 Sodium 140 Potassium 3.9 Chloride 106 Carbon Dioxide 30 Anion Gap 4 L BUN 21.7 H Creatinine 0.9 Est GFR (CKD-EPI)AfAm 98.75 Est GFR (CKD-EPI)NonAf 85.20 Random Glucose 87 Calcium 8.6 Total Bilirubin 0.8 AST 49 H ALT 83 H Alkaline Phosphatase 97 Total Protein 6.7 Albumin 3.1 L POC Urine HCG, Qual Syphilis Serology COVID-19 (GABY) HIV Ag/Ab Combo Qual Negative covid-19 not detected Assessment: 05/26/20 13:13 withdrwaal sx nausea Plan: continue detox increase po fluids maintain safety Tigan prn as directed psych f/u today
[2020-05-26] MEDS: SUVOREXANT 10 MG TABLET PO PRN (22:14)
[2020-05-26] MEDS: THIAMINE HCL 100 MG TABLET (FP) PO SCH (22:14)
[2020-05-26] MEDS: MELATONIN 5 MG TABLETS PO SCH (22:15)
[2020-05-26] MEDS: LIDOCAINE PATCH REMOVAL MC SCH (22:16)
[2020-05-27] MEDS ORDERED: METHADONE HCL 10 MG TABLET ONE (04:00)
[2020-05-27] MEDS: IBUPROFEN 400 MG TABLET (FP) PO PRN ×2 (04:01→13:46)
[2020-05-27] MEDS ORDERED: METHADONE HCL 40 MG DISPERSABLE TABLET ONE (04:01)
[2020-05-27] MEDS: METHADONE 80 MG, METHADONE 20 MG PO SCH (07:02)
[2020-05-27] MEDS: chlordiazePOXIDE HCL 10 MG CAPSULE PO SCH ×2 (07:03→17:42)
[2020-05-27] MEDS: GABAPENTIN 300 MG CAPSULE PO SCH ×3 (07:03→22:48)
[2020-05-27] MEDS: NICOTINE 21 MG/24 HOURS TOPICAL PATCH TD SCH (10:31)
[2020-05-27] MEDS: LIDOCAINE 5% TOPICAL PATCH TP SCH (10:32)
[2020-05-27] MEDS: PRENATAL VITAMINS W/ FOLIC ACID TABLET (FP) PO SCH (10:33)
[2020-05-27] MEDS: METHOCARBAMOL 500 MG TABLET PO PRN ×3 (10:33→22:51)
--- NOTE | 2020-05-27 14:29 | PN ---
[facility] CIWA - CIWA Score Nausea/Vomitin-No Nausea/No Vomiting Muscle Tremors: None Anxiety: 2 Agitation: 0-Normal Activity Paroxysmal Sweats: 2 Orientation: 0-Oriented Tacttile Disturbances: 0-None Auditory Disturbances: 0-None Visual Disturbances: 0-None Headache: 0-None Present CIWA-Ar Total Score: 4 S Progress Note (SOAP) Subjective: c/o mild withdrawal symptoms. Objective: 05/27/20 14:30 Vital Signs 05/27/20 05/27/20 05/27/20 07:00 09:45 13:20 Temperature 98.5 F 98.4 F 98.5 F Pulse Rate 79 81 90 Respiratory 18 18 18 Rate Blood Pressure 100/63 103/68 112/64 O2 Sat by Pulse 98 96 Oximetry (%) Laboratory Last Values WBC 3.6 K/mm3 (4.0-10.0) L 05/24/20 07:30 RBC 4.96 M/mm3 (3.60-5.2) 05/24/20 07:30 Hgb 13.2 GM/dL (10.7-15.3) 05/24/20 07:30 Hct 40.7 % (32.4-45.2) 05/24/20 07:30 MCV 82.0 fl (80-96) 05/24/20 07:30 MCH 26.6 pg (25.7-33.7) 05/24/20 07:30 MCHC 32.4 g/dl (32.0-36.0) 05/24/20 07:30 RDW 17.5 % (11.6-15.6) H 05/24/20 07:30 Plt Count 185 K/MM3 (134-434) 05/24/20 07:30 MPV 9.1 fl (7.5-11.1) 05/24/20 07:30 Sodium 140 mmol/L (136-145) 05/24/20 07:30 Potassium 3.9 mmol/L (3.5-5.1) 05/24/20 07:30 Chloride 106 mmol/L (98-107) 05/24/20 07:30 Carbon Dioxide 30 mmol/L (21-32) 05/24/20 07:30 Anion Gap 4 MMOL/L (8-16) L 06/24/20 07:30 BUN 21.7 mg/dL (7-18) H 05/24/20 07:30 Creatinine 0.9 mg/dL (0.55-1.3) 05/24/20 07:30 Est GFR (CKD-EPI)AfAm 98.75 05/24/20 07:30 Est GFR (CKD-EPI)NonAf 85.20 05/24/20 07:30 Random Glucose 87 mg/dL (74-106) 05/24/20 07:30 Calcium 8.6 mg/dL (8.5-10.1) 05/24/20 07:30 Total Bilirubin 0.8 mg/dL (0.2-1) 05/24/20 07:30 AST 49 U/L (15-37) H 05/24/20 07:30 ALT 83 U/L (13-61) H 05/24/20 07:30 Alkaline Phosphatase 97 U/L (45-117) 05/24/20 07:30 Total Protein 6.7 g/dl (6.4-8.2) 05/24/20 07:30 Albumin 3.1 g/dl (3.4-5.0) L 05/24/20 07:30 POC Urine HCG, Qual Negative 05/23/20 14:36 Syphilis Serology Non-reactive (NONREACTIVE) 05/24/20 07:30 COVID-19 (GABY) Not detected (Not Detected) 05/23/20 16:45 HIV Ag/Ab Combo Qual Negative (NEGATIVE) 05/24/20 07:30 Labs noted. Assessment: 05/27/20 14:30 AOX3, in no acute respiratory distress. Full ROM, ambulating in the unit. Mild withdrawal symptoms. For d/c tomorrow. Plan: continue detox. D/c in AM.
--- NOTE | 2020-05-27 15:42 | PN ---
[facility] Progress Note Note: Psychiatric nurse practitoner note: Patient scheduled for discharge tomorrow morning. A 2 week supply of Gabapentin 300mg TID was electronically sent to [facility] at [address] [place] [address]. [place] [address].
[2020-05-27] MEDS: THIAMINE HCL 100 MG TABLET (FP) PO SCH (22:48)
[2020-05-27] MEDS: MELATONIN 5 MG TABLETS PO SCH (22:48)
[2020-05-27] MEDS: SUVOREXANT 10 MG TABLET PO PRN (22:48)
[2020-05-27] MEDS: LIDOCAINE PATCH REMOVAL MC SCH (23:58)
[2020-05-28 01:20] LABS: URINE APPEARANCE Clear; URINE BILIRUBIN Negative (NEGATIVE); URINE COLOR Yellow; URINE GLUCOSE (UA) Negative (NEGATIVE); URINE KETONE Negative (NEGATIVE); URINE LEUK ESTERASE 2+ (NEGATIVE); URINE NITRITE Negative (NEGATIVE); URINE PROTEIN Negative (NEGATIVE); URINE UROBILINOGEN 0.2 mg/dL (0.2-1.0)
[2020-05-28 02:18] LABS: URINE RBC 11.5 /uL (0-23.9); URINE WBC 214.8 /uL (0-25.8)
[2020-05-28 02:19] LABS: EPI CELLS 24.1 /uL (0-25.1); HYALINE CASTS 1.54 /uL (0-3.1); URINE BACTERIA 114.7 /uL (0-1359)
[2020-05-28] MEDS ORDERED: METHADONE HCL 40 MG DISPERSABLE TABLET ONE (04:21)
[2020-05-28] MEDS ORDERED: METHADONE HCL 10 MG TABLET ONE (04:21)
[2020-05-28] MEDS ORDERED: chlordiazePOXIDE HCL 10 MG CAPSULE PO ONE (05:00)
[2020-05-28] MEDS: IBUPROFEN 400 MG TABLET (FP) PO PRN (06:39)
[2020-05-28] MEDS: GABAPENTIN 300 MG CAPSULE PO SCH (06:40)
[2020-05-28] MEDS: METHADONE 80 MG, METHADONE 20 MG PO SCH (06:41)
[2020-05-28 07:49] VITALS: BP 99/66; PULSE 89; TEMP 98.9
[2020-05-28] MEDS: LIDOCAINE 5% TOPICAL PATCH TP SCH (09:18)
[2020-05-28] MEDS: PRENATAL VITAMINS W/ FOLIC ACID TABLET (FP) PO SCH (09:18)
[2020-05-28] MEDS: NICOTINE 21 MG/24 HOURS TOPICAL PATCH TD SCH (09:18)
--- NOTE | 2020-05-28 16:44 | DS ---
[facility] Detox Discharge Summary Admission Date: 05/23/20 Discharge Date: 05/28/20 - History Present History: Alcohol Dependence, Opioid Dependence, MMTP Additional Comments: Patient completed detox successfully, discharged safely in stable condition. Instructed to follow up with PCP within 1 week. Noted with abnormal UA (possible UTI, contacted patient twice at [phone] but phone didn't ring). Patient to follow up with PCP for all abnormal lab results as instructed upon discharge. Pertinent Past History: Asthma HCV - Physical Exam Results Vital Signs: Vital Signs Temperature 98.9 F 05/28/20 07:00 Pulse Rate 89 05/28/20 07:00 Respiratory Rate 18 05/28/20 07:00 Blood Pressure 99/66 05/28/20 07:00 O2 Sat by Pulse Oximetry (%) 97 05/28/20 07:00 Pertinent Admission Physical Exam Findings: Withdrawal sxs Laboratory Tests 05/23/20 05/23/20 05/24/20 14:36 16:45 07:30 WBC RBC Hgb Hct MCV MCH MCHC RDW Plt Count MPV Sodium Potassium Chloride Carbon Dioxide Anion Gap BUN Creatinine Est GFR (CKD-EPI)AfAm Est GFR (CKD-EPI)NonAf Random Glucose Calcium Total Bilirubin AST ALT Alkaline Phosphatase Total Protein Albumin Urine Color Urine Appearance Urine pH Ur Specific [place] Urine Protein Urine Glucose (UA) Urine Ketones Urine Blood Urine Nitrite Urine Bilirubin Urine Urobilinogen Ur Leukocyte Esterase Urine WBC (Auto) Urine RBC (Auto) Urine Casts (Auto) U Epithel Cells (Auto) Urine Bacteria (Auto) POC Urine HCG, Qual Negative Syphilis Serology Non-reactive COVID-19 (GABY) Not detected HIV Ag/Ab Combo Qual 05/24/20 05/24/20 05/24/20 07:30 07:30 07:30 WBC 3.6 L RBC 4.96 Hgb 13.2 Hct 40.7 MCV 82.0 MCH 26.6 MCHC 32.4 RDW 17.5 H Plt Count 185 MPV 9.1 Sodium 140 Potassium 3.9 Chloride 106 Carbon Dioxide 30 Anion Gap 4 L BUN 21.7 H Creatinine 0.9 Est GFR (CKD-EPI)AfAm 98.75 Est GFR (CKD-EPI)NonAf 85.20 Random Glucose 87 Calcium 8.6 Total Bilirubin 0.8 AST 49 H ALT 83 H Alkaline Phosphatase 97 Total Protein 6.7 Albumin 3.1 L Urine Color Urine Appearance Urine pH Ur Specific [place] Urine Protein Urine Glucose (UA) Urine Ketones Urine Blood Urine Nitrite Urine Bilirubin Urine Urobilinogen Ur Leukocyte Esterase Urine WBC (Auto) Urine RBC (Auto) Urine Casts (Auto) U Epithel Cells (Auto) Urine Bacteria (Auto) POC Urine HCG, Qual Syphilis Serology COVID-19 (GABY) HIV Ag/Ab Combo Qual Negative 05/28/20 00:05 WBC RBC Hgb Hct MCV MCH MCHC RDW Plt Count MPV Sodium Potassium Chloride Carbon Dioxide Anion Gap BUN Creatinine Est GFR (CKD-EPI)AfAm Est GFR (CKD-EPI)NonAf Random Glucose Calcium Total Bilirubin AST ALT Alkaline Phosphatase Total Protein Albumin Urine Color Yellow Urine Appearance Clear Urine pH 5.0 Ur Specific [place] 1.020 Urine Protein Negative Urine Glucose (UA) Negative Urine Ketones Negative Urine Blood Negative Urine Nitrite Negative Urine Bilirubin Negative Urine Urobilinogen 0.2 Ur Leukocyte Esterase 2+ H Urine WBC (Auto) 214.8 Urine RBC (Auto) 11.5 Urine Casts (Auto) 1.54 U Epithel Cells (Auto) 24.1 Urine Bacteria (Auto) 114.7 POC Urine HCG, Qual Syphilis Serology COVID-19 (GABY) HIV Ag/Ab Combo Qual Labs reviewed: azotemia, transaminitis, abnormal UA (UTI) - Treatment Hospital Course: Detox Protocol Followed, Detoxed Safely, Responded well, Discharged Condition Good - Medication Discharge Medications: Ambulatory Orders Albuterol Sulfate Inhaler - [Ventolin Hfa Inhaler -] 2 inh PO Q4H PRN 05/23/20 Gabapentin [Neurontin -] 300 mg PO TID #42 capsule 05/27/20 - Diagnosis (1) Hepatitis C Status: Chronic (2) Azotemia Status: Acute (3) Transaminitis Status: Acute (4) Alcohol dependence with uncomplicated withdrawal Status: Acute (5) Asthma Status: Chronic Qualifiers: Asthma severity: mild Asthma persistence: intermittent Asthma complication type: uncomplicated Qualified Code(s): J45.20 - Mild intermittent asthma, uncomplicated (6) Opioid dependence on agonist therapy Status: Chronic (7) PTSD (post-traumatic stress disorder) Status: Chronic (8) Abnormal finding on urinalysis Status: Acute - AMA Did Patient Leave Against Medical Advice: No (Follow up with PCP within 1 week)
== END 2020-05-28 10:02 | disposition home or self-care (01) | DRG 773 ==
LOC: YASAS 13:28 → Y5N DETOX 16:35
PROVIDERS: ADMIT Allergy & Immunology; ATTEND Allergy & Immunology
PROC: HZ2ZZZZ Detoxification Services for Substance Abuse Treatment (ICD-10-PCS; principal; 2020-05-23)
DX: F10.230 Alcohol dependence with withdrawal, uncomplicated (principal); F11.20 Opioid dependence, uncomplicated; F14.20 Cocaine dependence, uncomplicated; F17.210 Nicotine dependence, cigarettes, uncomplicated; F43.10 Post-traumatic stress disorder, unspecified; F19.282 Other psychoactive substance dependence with psychoactive substance-induced sleep disorder; R82.90 Unspecified abnormal findings in urine; R74.0 Nonspecific elevation of levels of transaminase and lactic acid dehydrogenase [LDH]; R79.89 Other specified abnormal findings of blood chemistry; R11.0 Nausea; R00.1 Bradycardia, unspecified; K59.00 Constipation, unspecified; Z88.8 Allergy status to other drugs, medicaments and biological substances; Z62.810 Personal history of physical and sexual abuse in childhood; Z86.69 Personal history of other diseases of the nervous system and sense organs; Z91.5 Personal history of self-harm; Z59.0 Homelessness
CPT/HCPCS: 36415; 80053; 81003; 81025; 85027; 86780; 87389; 93005; 93010; Q0162; U0003

== ENCOUNTER 2022-08-29 12:38 | Inpatient (IN) | payer OTHER ==
[2022-08-29 13:27] VITALS: BMI 22.3
[2022-08-29] MEDS ORDERED: ACETAMINOPHEN 325 MG TABLET (FP) PO PRN ×2 (13:45)
[2022-08-29] MEDS ORDERED: DICYCLOMINE HCL 10 MG CAPSULE PO PRN (13:45)
[2022-08-29] MEDS ORDERED: BUPRENORPHINE HCL 150 MCG, BUPRENORPHINE HCL 75 MCG BC PRN (13:45)
[2022-08-29] MEDS ORDERED: MAGNESIUM HYDROX 2400MG/30ML ORAL SUSPENSION 30 ML CUP PO PRN (13:45)
[2022-08-29] MEDS ORDERED: NALOXONE HCL (KLOXXADO) 8 MG SPRAY NS PRN (13:45)
[2022-08-29] MEDS ORDERED: BENZOCAINE/MENTHOL (CHLORASEPTIC ) LOZENGE MM PRN (13:45)
[2022-08-29] MEDS ORDERED: MAGNESIUM CITRATE 300 ML BOTTLE PO PRN (13:45)
[2022-08-29] MEDS ORDERED: BUPRENORPHINE HCL 150 MCG, BUPRENORPHINE HCL 75 MCG BC ONE (13:45)
[2022-08-29] MEDS ORDERED: MAG HYDROX/AL HYDROX/SIMETH 30 ML UNIT-DOSE CUP PO PRN (13:45)
[2022-08-29] MEDS ORDERED: LOPERAMIDE HCL 2 MG CAPSULE PO PRN (13:45)
[2022-08-29] MEDS ORDERED: ONDANSETRON *ODT* 4 MG TABLET SL PRN (13:45)
[2022-08-29] MEDS ORDERED: IBUPROFEN 400 MG TABLET (FP) PO PRN (13:45)
[2022-08-29] MEDS ORDERED: cloNIDine HCL 0.1 MG TABLET PO ONE (13:45)
[2022-08-29] MEDS ORDERED: ALBUTEROL SO4 HFA INHALER IH PRN (14:19)
[2022-08-29] MEDS: diazePAM 5 MG TABLET PO PRN ×2 (14:45→20:11)
[2022-08-29] MEDS: hydrOXYzine PAMOATE 25 MG CAPSULE (FP) PO SCH ×3 (14:46→22:28)
[2022-08-29] MEDS: PRENATAL VITAMINS W/ FOLIC ACID TABLET (FP) PO SCH (14:48)
[2022-08-29] MEDS: NICOTINE 10 MG CARTRIDGE (INHALER) IH PRN (15:53)
[2022-08-29 17:02] LABS: BLOOD UREA NITROGEN 17.1 mg/dL (7-18); CALCIUM 9.3 mg/dL (8.5-10.1); HEMATOCRIT 41.1 % (32.4-45.2); MCH 26.9 pg (25.7-33.7); MCHC 31.7 g/dl (32.0-36.0); MEAN CELL VOLUME 84.7 fl (80-96); MEAN PLT VOLUME 9.8 fl (7.5-11.1); PLATELET COUNT 230 10^3/uL (134-434); RBC 4.85 M/mm3 (3.60-5.2); RDW 15.8 % (11.6-15.6); WHITE BLOOD COUNT 7.5 K/mm3 (4.0-10.0)
[2022-08-29 17:03] LABS: ALBUMIN 3.6 g/dl (3.4-5.0)
[2022-08-29 17:06] LABS: CREATININE 0.9 mg/dL (0.55-1.3)
[2022-08-29 17:08] LABS: BILIRUBIN,TOTAL 0.7 mg/dL (0.2-1); TOT PROT 7.4 g/dl (6.4-8.2)
[2022-08-29] MEDS: METHOCARBAMOL 500 MG TABLET PO PRN (20:09)
[2022-08-29] MEDS: MELATONIN 5 MG TABLETS PO SCH (22:28)
[2022-08-29] MEDS: THIAMINE HCL 100 MG TABLET (FP) PO SCH (22:28)
[2022-08-30] MEDS ORDERED: BUPRENORPHINE HCL 150 MCG, BUPRENORPHINE HCL 75 MCG BC PRN
[2022-08-30] MEDS ORDERED: BUPRENORPHINE HCL 150 MCG, BUPRENORPHINE HCL 75 MCG BC SCH (06:00)
[2022-08-30] MEDS: hydrOXYzine PAMOATE 25 MG CAPSULE (FP) PO SCH ×3 (06:40→14:50)
[2022-08-30] MEDS: BISMUTH SUBSALICYLATE 524 MG/30 ML PO PRN (06:48)
[2022-08-30] MEDS: diazePAM 5 MG TABLET PO PRN ×3 (08:06→22:34)
[2022-08-30] MEDS: IBUPROFEN 600 MG TABLET (FP) PO PRN (08:07)
[2022-08-30] MEDS: METHOCARBAMOL 500 MG TABLET PO PRN ×2 (08:07→22:32)
[2022-08-30] MEDS: PRENATAL VITAMINS W/ FOLIC ACID TABLET (FP) PO SCH (10:59)
[2022-08-30] MEDS: NICOTINE 14 MG/24 HOURS TOPICAL PATCH TD SCH (11:00)
[2022-08-30] MEDS: cloNIDine HCL 0.1 MG TABLET PO PRN (14:50)
[2022-08-30] MEDS ORDERED: methaDONE HCL 10 MG TABLET (FOR DETOX USE ONLY) PO ONE (16:29)
[2022-08-30] MEDS ORDERED: hydrOXYzine PAMOATE 25 MG CAPSULE (FP) PO PRN (16:30)
[2022-08-30] MEDS: NICOTINE 10 MG CARTRIDGE (INHALER) IH PRN (21:36)
[2022-08-30] MEDS: MELATONIN 5 MG TABLETS PO SCH (22:32)
[2022-08-30] MEDS: THIAMINE HCL 100 MG TABLET (FP) PO SCH (22:32)
[2022-08-31] MEDS: IBUPROFEN 600 MG TABLET (FP) PO PRN (03:15)
[2022-08-31] MEDS: diazePAM 5 MG TABLET PO PRN ×2 (04:35→12:28)
[2022-08-31] MEDS ORDERED: BUPRENORPHINE HCL 450 MCG FILM BC SCH (06:00)
[2022-08-31] MEDS: PRENATAL VITAMINS W/ FOLIC ACID TABLET (FP) PO SCH (09:11)
[2022-08-31] MEDS: cloNIDine HCL 0.1 MG TABLET PO PRN (09:11)
[2022-08-31] MEDS: METHOCARBAMOL 500 MG TABLET PO PRN ×2 (09:12→15:14)
[2022-08-31] MEDS: NICOTINE 14 MG/24 HOURS TOPICAL PATCH TD SCH (09:18)
[2022-08-31 11:51] VITALS: RESP 18
[2022-08-31] MEDS: BISMUTH SUBSALICYLATE 524 MG/30 ML PO PRN (12:32)
[2022-08-31] MEDS ORDERED: PANTOPRAZOLE 40 MG TABLET PO SCH (15:30)
[2022-08-31 17:29] VITALS: BP 101/59; PULSE 73; TEMP 97.2
[2022-09-01] MEDS ORDERED: BUPRENORPHINE/NALOXONE 4 MG/1 MG FILM PACKET SL SCH (06:00)
[2022-09-01] MEDS ORDERED: methaDONE HCL 10 MG TABLET (FOR DETOX USE ONLY) PO ONE (10:00)
[2022-09-02] MEDS ORDERED: BUPRENORPHINE/NALOXONE 8 MG/2 MG FILM PACKET SL ONE (06:00)
[2022-09-03] MEDS ORDERED: methaDONE HCL 10 MG TABLET (FOR DETOX USE ONLY) PO ONE (10:00)
== END 2022-08-31 17:54 | disposition left against medical advice (07) | DRG 770 ==
LOC: YASAS 12:38 → Y3N 13:57
PROVIDERS: ADMIT Allergy & Immunology; ATTEND Surgery
PROC: HZ2ZZZZ Detoxification Services for Substance Abuse Treatment (ICD-10-PCS; principal; 2022-08-29)
DX: F11.23 Opioid dependence with withdrawal (principal); F14.20 Cocaine dependence, uncomplicated; F12.20 Cannabis dependence, uncomplicated; F17.210 Nicotine dependence, cigarettes, uncomplicated; F19.24 Other psychoactive substance dependence with psychoactive substance-induced mood disorder; F43.10 Post-traumatic stress disorder, unspecified; R07.9 Chest pain, unspecified; R10.13 Epigastric pain; Z86.19 Personal history of other infectious and parasitic diseases; Z86.69 Personal history of other diseases of the nervous system and sense organs; Z88.5 Allergy status to narcotic agent; Z59.02 Unsheltered homelessness; Z28.310 Unvaccinated for COVID-19; Z28.9 Immunization not carried out for unspecified reason
CPT/HCPCS: 36415; 80053; 81025; 85027; 86780; 93005; 93010